=== PATIENT | female | born 1995 | race Caucasian/White ===

== ENCOUNTER 2024-02-14 02:44 | Emergency (ER) | payer MEDICAID ==
[~2024-02-14] VITALS: Ht 160 cm; Wt 90.9 kg
[2024-02-14 03:07] VITALS: BP 102/64; PULSE 115; RESP 16; TEMP 98.7
[2024-02-14] MEDS: KETOROLAC TROMETHAMINE 30 MG/ML VIAL IVP ONE (03:29)
[2024-02-14] MEDS: FAMOTIDINE 20 MG/2 ML VIAL IVP ONE (03:29)
[2024-02-14] MEDS: MAG HYDROX/ALUMINUM HYD/SIMETH 30 ML SUSPENSION UDCUP PO ONE (03:29)
[2024-02-14] MEDS ORDERED: ONDANSETRON HCL 4 MG/2 ML VIAL IVP ONE (03:30)
[2024-02-14] MEDS: SODIUM CHLORIDE 0.9% 1,000 ML IV ONE (03:30)
[2024-02-14 03:35] LABS: BASOPHILS % (AUTO) 0.1 % (0.0-2.0); EOSINOPHILS % (AUTO) 0.7 % (1.0-6.0); HEMATOCRIT 39.2 % (36-46); LYMPHOCYTES # (AUTO) 0.4 K/uL (1.0-4.8); MEAN CORPUSCULAR HEMOGLOBIN 27.8 pg (26.0-34.0); MEAN CORPUSCULAR HGB CONC 33.1 G/dL (31.0-37.0); MEAN CORPUSCULAR VOLUME 84 fL (80-100); MONOCYTES # (AUTO) 0.6 K/uL (0.1-1.0); MONOCYTES % (AUTO) 4.4 % (2.0-9.0); NEUTROPHILS # (AUTO) 11.9 K/uL (1.8-7.7); PLATELET COUNT (AUTO) 348 K/uL (150-450); RED BLOOD CELL COUNT(AUTO) 4.68 MIL/uL (4.00-5.20); RED CELL DISTRIBUTION WIDTH 14.9 % (11.5-14.5); WHITE BLOOD COUNT (AUTO) 12.9 K/uL (4.5-11.0)
[2024-02-14 03:44] LABS: ANION GAP 6 mmol/L (8-16); CALCIUM, TOTAL 8.3 mg/dL (8.8-10.5); CARBON DIOXIDE 27 mmol/L (22-29); CHLORIDE 105 mmol/L (98-107); CREATININE 0.83 mg/dL (0.60-1.30); GLOMERULAR FILTR. RATE CALC > 60 mL/min (>60); GLUCOSE,RANDOM 127 mg/dL (70-110); POTASSIUM 4.6 mmol/L (3.5-5.1); SODIUM SERUM 138 mmol/L (136-145); UREA NITROGEN, BLOOD 13 mg/dL (7-18)
[2024-02-14 03:48] LABS: NEUTROPHILS % (AUTO) 91.8 % (40.0-70.0)
[2024-02-14 03:49] LABS: ALANINE AMINOTRANSFERASE 34 U/L (12-78); ALKALINE PHOSPHATASE 66 U/L (46-116); ASPARTATE AMINOTRANSFERASE 18 U/L (15-37); BILIRUBIN,TOTAL 0.5 mg/dL (0.1-1.0); LIPASE 30 U/L (16-77); TOTAL PROTEIN, SERUM 6.4 g/dL (6.4-8.2)
[2024-02-14] MEDS ORDERED: SODIUM CHLORIDE 0.9% 100 ML ONE (03:58)
[2024-02-14] MEDS ORDERED: IOHEXOL 350 MG/ML 100 ML VIAL ONE (03:58)
[2024-02-14] MEDS ORDERED: 0.9% SODIUM CHLORIDE 10 ML SYRINGE IVP ONE (03:58)
[2024-02-14] MEDS ORDERED: ONDA-104 PO (04:55)
[2024-02-14] MEDS ORDERED: ACET-3385 PO (04:55)
== END 2024-02-14 05:40 | disposition home or self-care (01) ==
LOC: EMS 02:44
DX: K52.9 Noninfective gastroenteritis and colitis, unspecified (principal); E11.9 Type 2 diabetes mellitus without complications; Z98.890 Other specified postprocedural states
CPT/HCPCS: 80048; 80076; 83605; 83690; 84703; 85025; 87040; 36415; 71045; 74177; 99285; 93005; 96361; 96374; 96375; Q9967; J3490; J1885; J2405; J7030; J7050; X7700